=== PATIENT | female | born 2000 | race Caucasian/White ===

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

== ENCOUNTER 2020-02-01 15:22 | Outpatient (REF) | payer MEDICAID, SELFPAY ==
[2020-02-03 14:42] LABS: Patient Race White; SARS-CoV-2 RNA Undetected (Undetected); SARS-CoV-2 Specimen Source Nasopharynx
== END 2020-02-01 15:42 ==
LOC: LBN 15:22
PROVIDERS: PCP Internal Medicine; Visit Provider Nurse Practitioner Family
DX: Z20.828 Contact with and (suspected) exposure to other viral communicable diseases (principal)
CPT/HCPCS: U0003

== ENCOUNTER 2020-02-26 22:36 | Outpatient (REF) | payer MEDICAID, SELFPAY ==
[2020-03-02 00:26] LABS: Chlamydia amplified RNA Negative (Negative); N gonorrhoeae amplified RNA Negative (Negative); Source ENDOCERVICAL
== END 2020-02-26 22:56 ==
LOC: LBN 22:36
PROVIDERS: PCP Internal Medicine; Visit Provider Nurse Practitioner Family
DX: Z11.3 Encounter for screening for infections with a predominantly sexual mode of transmission (principal)
CPT/HCPCS: 87491; 87591

== ENCOUNTER 2020-04-06 14:05 | Outpatient (REF) | payer MEDICAID, SELFPAY ==
[2020-04-08 00:03] LABS: COVID-19 RT-PCR UVMMC Result Negative (Negative)
== END 2020-04-06 14:25 ==
LOC: NCHCN 14:05
PROVIDERS: PCP Internal Medicine; Visit Provider Physician Assistant
DX: Z11.59 Encounter for screening for other viral diseases (principal)
CPT/HCPCS: U0003

== ENCOUNTER 2020-05-04 19:23 | Outpatient (REF) | payer MEDICAID, SELFPAY ==
[2020-05-06 22:11] LABS: COVID-19 RT-PCR Result NEGATIVE (Negative)
== END 2020-05-04 19:43 ==
LOC: NCHCN 19:23
PROVIDERS: PCP Internal Medicine; Visit Provider Physician Assistant Medical
DX: J06.9 Acute upper respiratory infection, unspecified (principal)
CPT/HCPCS: U0003

== ENCOUNTER 2020-05-09 14:58 | Outpatient (REF) | payer MEDICAID, SELFPAY ==
[2020-05-09 21:04] LABS: TSH (W/Ref FT4) 1.64 uIU/mL (0.52-4.13)
== END 2020-05-09 15:18 ==
LOC: NCHCN 14:58
PROVIDERS: PCP Internal Medicine; Visit Provider Nurse Practitioner Family
DX: E03.9 Hypothyroidism, unspecified (principal)
CPT/HCPCS: 84443

== ENCOUNTER 2020-09-27 17:26 | Outpatient (CLI) | payer MEDICAID, SELFPAY ==
--- NOTE | 2020-09-27 | DI.RAD_ITS ---
Exam(s) XR ANKLE RT COMPLETE EXAM: XR ANKLE RT COMPLETE CLINICAL HISTORY: RT ANKLE JT PAIN, M25.571. TECHNIQUE: 2D digital imaging was performed. COMPARISON: No exams were available for comparison FINDINGS: BONES: No acute fracture is present. No bony destructive lesion is seen. JOINTS: The ankle mortise is normally aligned. SOFT TISSUE: Normal. IMPRESSION: Unremarkable radiographs of the right ankle. DATA REPOSITORY: RADIATION DOSE DELIVERED:
== END 2020-09-27 17:46 ==
PROVIDERS: PCP Internal Medicine; Visit Provider Nurse Practitioner Family
DX: M25.571 Pain in right ankle and joints of right foot (principal)
CPT/HCPCS: 73610

== ENCOUNTER 2020-11-15 19:29 | Emergency (ER) | payer MEDICAID, SELFPAY ==
[2020-11-15] VITALS (8 sets, daily range): BP systolic 93–129; BP diastolic 46–81; PULSE 96–108; RESP 16–18; TEMP 36.4–36.6; O2SAT 96–99
--- NOTE | 2020-11-15 19:50 | ED.GENADUL_ITS ---
Discharge Plan Disposition Patient Disposition: HOME Condition: Stable Discharge Details Clinical Impression: Nausea and vomiting during , URI (upper respiratory infection) Primary Care Provider: Brody Galicia ED Provider: Margarita Julian Home Meds and New Rx's Prescriptions: New metoclopramide HCl [Reglan] 5 mg tablet 5 mg PO Q6H PRN (Reason: nausea and vomiting) Qty: 10 RF: 0 Continued afiatveg-fhl-If-FA 1 mg Tablet 1 tab PO DAILY RF: 0 Discharge Instructions Instructions: Nausea and Vomiting in (ED), Upper Respiratory Infection (ED) Additional Instructions: Please continue to encourage frequent sips of fluids. Your labs are reassuring here today. Your nausea and vomiting is likely associated with your first trimester . You may use the Reglan as prescribed if you have recurrence of your nausea vomiting. This medication can make people feel anxious and have unusual movements. Benadryl will help with the side effects. You may also use Benadryl to help with nausea, vitamin B6, florence. Upper respiratory infection is likely viral in nature. Please quarantine until your COVID-19 testing has returned. Please follow-up with your COMMERCIAL CONSTRUCTION PROJECT MANAGER in 1 week for reevaluation, call tomorrow to schedule appointment. If you develop fever/chills, shortness of breath, difficulty breathing, abdominal pain, vaginal discharge or other new/worsening symptoms please seek care urgently once again Referrals: Dori Scott MD [ [facility] STAFF PHYSICIAN] - Brody Galicia MD [Primary Care Provider] - Medical Decision Making Patient is a pleasant 20-year-old female presenting today, company by significant other, with chief complaint of nausea and vomiting. Patient 6 weeks gestation. States over the past few days she began having increased nausea and vomiting. Reports 3 episodes of vomiting today. Is not tried anything to help with her symptoms. States that she also began having URI symptoms of runny nose, sore throat and cough. Cough is a nonproductive. She denies any shortness of breath or difficulty breathing. Patient is vaccinated against COVID-19. She denies any chest pain. Denies any abrupt abdominal pain, cramping. No vaginal discharge. On exam, patient appears nontoxic. Lungs are clear, HEENT exam is significant for slightly erythematous posterior oropharynx. Chest with scarring to left TM which she states was present from the child. Her abdomen is benign. I see any evidence of bacterial infection on exam. Lungs are clear, no evidence to suggest a bacterial pneumonia. Will Covid test. Advised that she quarantine until these results are back. Based on the amount of vomiting and difficulty staying hydrated, will IV hydrate and obtain baseline labs to look for any electrolyte abnormalities. Will give Reglan and Benadryl to help with her nausea. She not nursing any discomfort or discharge, no findings to suggest ectopic at this time. Patient has verification by COMMERCIAL CONSTRUCTION PROJECT MANAGER and is followed by [facility]. Patient reports feeling much improved, is requesting discharge. Labs reviewed. White count of 11.1. No significant electrolyte abnormalities. Discussed these findings with the patient. Will prescribe further Reglan to be used if symptoms return. Encourage frequent small sips of fluids. We also discussed other options for nausea affecting the first trimester such as vitamin B6, florence. Return precautions were discussed. Encourage close follow-up with COMMERCIAL CONSTRUCTION PROJECT MANAGER. All the questions and concerns were addressed and she is agreement this plan. HPI General Mode of arrival: ambulatory . Date/Time Provider Initiated Documentation: 11/15/20 19:50 . Limitations to Documentation: no limitations . Information obtained by: patient, family (signficant other) and RN notes reviewed . History of Present Illness 20 year old F presents to the emergency department with the chief complaint of nausea, vomiting, runny nose, cough, described as moderate, with intensity rated at 1 (denies any pain currently). Patient started experiencing this day(s) (3) and it has been constant. No relieving factors improve symptom(s), No exacerbating factors reported . Patient notes fever/chills (has had chills); denies chest pain, cough, headaches, rash, shortness of breath and weakness. 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 ALANNA: 3 Review of Systems Constitutional Constitutional: Reports as per HPI and Denies headache(s) Eyes Eyes: Reports as per HPI, Denies eye discharge and Denies irritation ENT Ears, Nose, Mouth, and Throat: Reports as per HPI and Denies headache(s) Cardiovascular Cardiovascular: Reports as per HPI, Denies chest pain and Denies dyspnea Respiratory Respiratory: Reports as per HPI and Denies dyspnea Gastrointestinal Gastrointestinal: Reports as per HPI, Denies abdominal pain, Denies change in bowel habits, Reports nausea and Reports vomiting Integumentary/Breasts Skin/Breast: Reports as per HPI and Denies rash Neurologic Neurologic: Reports as per HPI and Denies headache(s) [facility] Medical History (Updated 11/15/20 @ 21:13 by CARI Hodge) Recurrent dislocation of patella, right knee Right ovarian cyst Onset 02/2016. Started on OCPs. 11/2016 change to Depo-Provera. 04/2017 Changed to OCPs. Family History Grandfather Myocardial infarction Grandmother Rheumatoid arthritis Social History Smoking/Tobacco Use Status: Never Second Hand Exposure: No Smoking risk assessment performed?: Yes Alcohol Intake: never Drug use: Never Substance use type: does not use Household members: other Details: Lives with her father in his house. 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 Sexually active: Yes Seatbelt use: always Do you feel safe at home: Yes Do you feel safe in your relationship?: Yes History History 0 Para Hx # Term Pregnancies Multiple births Hx # Pregnancies Ectopic pregnancies AB induced Hx Number of Living Children AB spontaneous Exam Const General: cooperative, healthy appearing, comfortable, no acute distress, well developed and well groomed Nutritional Appearance: well nourished and overweight Orientation: alert and awake HENMT Head: normal to inspection, normocephalic and atraumatic Ears: hearing grossly normal bilaterally, external ears normal and TM's normal bilaterally General nose exam: external nose normal and nares normal Face and sinus: normal facial exam, sinuses nontender and face symmetric Mouth: oral mucosae normal, lip normal, tongue normal, oropharynx normal and moist mucous membranes Teeth and gingiva: dentition normal Throat: posterior oropharynx abnormal (slightly erythematous), tonsils normal and uvula midline Eyes General: appearance normal, both eyes and all related structures Neck Neck: normal visual inspection, full ROM, no lymphadenopathy and no meningeal signs Resp Effort & Inspection: normal respiratory effort, able to speak in complete sentences and no respiratory distress Auscultation: clear to auscultation bilaterally, no rales, no rhonchi and no wheezes Cardio Rate: regular rate Rhythm: regular rhythm Heart Sounds: S1 normal and S2 normal GI Inspection: normal to inspection Palpation: nontender Percussion: normal to percussion Auscultation: normal bowel sounds Skin General skin exam: no rashes or lesions noted Neuro General: patient alert and patient awake Cognition: normal cognition Speech: speech normal Gait: normal gait Psych Appearance: grossly normal and well kempt Mental Status: mental status grossly normal Speech and Movement: speech and movement normal Course Vital Signs Vital signs: Vital Signs Temperature 36.6 C 11/15/20 19:39 Pulse 108 H 11/15/20 19:39 Respiratory Rate 18 11/15/20 19:39 Blood Pressure 129/81 11/15/20 19:39 Pulse Oximetry 96 11/15/20 19:39 Temperature 36.6 C 11/15/20 19:39 Temperature Source Temporal Artery Scan 11/15/20 19:39 Pulse 108 H 11/15/20 19:39 Respiratory Rate 18 11/15/20 19:39 Respiratory Effort Non-Labored 11/15/20 19:43 Blood Pressure 129/81 11/15/20 19:39 Blood Pressure Position Sitting 11/15/20 19:39 Pulse Oximetry 96 11/15/20 19:39 Oxygen Delivery Method Room Air 11/15/20 19:39 Oxygen Flow Rate 0 11/15/20 19:39 Pain Level 0 11/15/20 19:39
[2020-11-15] MEDS: Normal Saline 1,000 ML 1000 ML IV (20:19)
[2020-11-15] MEDS: diphenhydrAMINE 50 MG/ML VIAL 25 MG IVP (20:23)
[2020-11-15] MEDS: Metoclopramide 10 MG/2 ML VIAL IVP (20:25)
[2020-11-15 20:27] LABS: Abs Immature Grans 0.04 10^3/uL (0.0-0.06); Absolute Basophil Count 0.04 10^3/uL (0.0-0.2); Absolute Eosinophil Count 0.32 10^3/uL (0.0-0.7); Absolute Lymphocyte Count 1.17 10^3/uL (1.2-3.4); Absolute Monocyte Count 1.33 10^3/uL (0.1-0.8); Basophils % 0.4; Eosinophils % 2.9; HCT 43.3 % (36.0-46.0); HGB 14.2 g/dL (11.2-15.7); Immature Grans % 0.4; Lymphocytes % 10.5; MCH 29.2 pg (27.0-33.0); MCHC 32.8 % (32.0-36.0); MCV 88.9 fL (80-95); MPV 9.8 fL (8.0-11.0); Neutrophils % 73.8; Nucleated RBC 0 %; Platelet Count 282 10^3/uL (130-400); RBC 4.87 10^6/uL (3.93-5.22); RDW-SD 42.7 fL; WBC 11.12 10^3/uL (4.4-10.8)
[2020-11-15 20:28] LABS: Absolute Neutrophil Count 8.21 10^3/uL (1.2-6.7)
[2020-11-15 20:39] LABS: ALT 30 U/L (14-59); AST 17 U/L (15-37); Albumin 3.6 g/dL (3.4-5.0); Alkaline Phosphatase 53 U/L (46-116); Anion Gap 9.7 mmol/L (3-11); BUN 6 mg/dL (7-18); CO2 26.3 mmol/L (21.0-32.0); CREATININE 0.7 mg/dL (0.55-1.02); Calcium 8.8 mg/dL (8.5-10.1); Chloride 101 mmol/L (98-107); Glucose 107 mg/dL (74-106); Potassium 3.6 mmol/L (3.5-5.1); Sodium 137 mmol/L (136-145); Total Protein 7.7 g/dL (6.4-8.2)
--- NOTE | 2020-11-15 20:53 | NUR.NOTE ---
Patient reports nausea resolved; no emesis since arrival. IV fluids infusing. SO at bedside.Nursing Note:
--- NOTE | 2020-11-15 21:27 | NUR.NOTE ---
2119-Covid swab collectedNursing Note:
[2020-11-17 14:24] LABS: COVID-19 RT-PCR UVMMC Result Negative (Negative)
== END 2020-11-15 21:41 | disposition home or self-care (01) ==
PROVIDERS: Emergency Provider Physician Assistant; PCP Internal Medicine
DX: O21.8 Other vomiting complicating pregnancy (principal); Z3A.01 Less than 8 weeks gestation of pregnancy; J06.9 Acute upper respiratory infection, unspecified; Z20.822 Contact with and (suspected) exposure to COVID-19
CPT/HCPCS: 80053; 96361; 96374; 96375; 99284; U0003; 85025; 99283; J1200; J2765

== ENCOUNTER 2020-12-30 02:24 | Outpatient (CLI) | payer MEDICAID, SELFPAY ==
[2020-12-30 10:17] LABS: Kit/Specimen SENT
[2020-12-30 10:28] LABS: Abs Immature Grans 0.07 10^3/uL (0.0-0.06); Absolute Basophil Count 0.05 10^3/uL (0.0-0.2); Absolute Eosinophil Count 0.24 10^3/uL (0.0-0.7); Absolute Lymphocyte Count 1.51 10^3/uL (1.2-3.4); Absolute Monocyte Count 0.99 10^3/uL (0.1-0.8); Basophils % 0.4; Eosinophils % 1.8; HCT 41.3 % (36.0-46.0); HGB 13.5 g/dL (11.2-15.7); Immature Grans % 0.5; Lymphocytes % 11.2; MCH 29.5 pg (27.0-33.0); MCHC 32.7 % (32.0-36.0); MCV 90.2 fL (80-95); MPV 9.5 fL (8.0-11.0); Monocytes % 7.3; Neutrophils % 78.8; Nucleated RBC 0 %; Platelet Count 296 10^3/uL (130-400); RBC 4.58 10^6/uL (3.93-5.22); RDW 12.6 % (11.7-14.6); RDW-SD 41.5 fL; WBC 13.52 10^3/uL (4.4-10.8)
[2020-12-30 10:29] LABS: Absolute Neutrophil Count 10.65 10^3/uL (1.2-6.7)
[2020-12-30 10:45] LABS: Glucose,1 Hr (Glucola) 123 mg/dL (80-140)
[2020-12-30 12:53] LABS: TSH (W/Ref FT4) 3.05 uIU/mL (0.36-3.74)
[2021-01-02 10:33] LABS: Hepatitis C Ab w Rflx HCV PCR Negative (Negative)
[2021-01-02 10:59] LABS: Varicella IgG Antibody Negative (See Note)
[2021-01-02 11:04] LABS: Rubella IgG Ab (UVM) Positive (See Note)
[2021-01-02 12:13] LABS: Hepatitis B Surface Ag Negative (Negative)
[2021-01-02 12:57] LABS: HIV-1/2 Ag & Ab Screen Negative (Negative)
[2021-01-02 13:15] LABS: Syphilis Total Ab w/Reflex Nonreactive (Nonreactive)
[2021-01-09 01:01] LABS: Result Summary NEGATIVE; Specimen WB Whole Blood
== END 2020-12-30 02:25 | disposition home or self-care (01) ==
LOC: LBO 02:24
PROVIDERS: PCP Internal Medicine; Visit Provider Advanced Practice Midwife
DX: Z34.91 Encounter for supervision of normal pregnancy, unspecified, first trimester; Z36.89 Encounter for other specified antenatal screening
CPT/HCPCS: 36415; 82950; 86787; 86803; 86850; 86900; 86901; 87340; 87389; 81220; 84443; 85025; 86762; 86780

== ENCOUNTER 2020-12-30 15:08 | Outpatient (REF) | payer MEDICAID, SELFPAY ==
[2020-12-30 15:17] LABS: *AMPHETAMINES SCREEN URINE Negative (Negative); *BARBITURATES SCREEN URINE Negative (Negative); *BENZODIAZEPINES SCREEN URINE Negative (Negative); Cannabinoids THC Negative (Negative); Cocaine Screen,Urine Negative (Negative); METHADONE URINE SCREEN Negative (Negative); OPIATES URINE SCREEN Negative (Negative)
[2020-12-30 15:25] LABS: Tricyclic Antidepressants Negative (Negative)
[2021-01-02 15:35] LABS: GC Result Negative (Negative)
[2021-01-02 15:36] LABS: GC Result Negative (Negative)
[2021-01-02 16:09] LABS: Chlamydia Result Positive (Negative)
[2021-01-02 16:10] LABS: Chlamydia Result Positive (Negative)
[2021-01-06 10:02] LABS: Buprenorphine Negative ng/mL (Cutoff: 5.0); Norbuprenorphine Negative ng/mL (Cutoff: 2.5)
== END 2020-12-30 15:09 | disposition home or self-care (01) ==
LOC: LBN 15:08
PROVIDERS: PCP Internal Medicine; Visit Provider Advanced Practice Midwife
DX: Z34.91 Encounter for supervision of normal pregnancy, unspecified, first trimester (principal); F41.9 Anxiety disorder, unspecified; Z68.33 Body mass index [BMI] 33.0-33.9, adult
CPT/HCPCS: 80307; 87491; 87591; 87086

== ENCOUNTER 2021-02-08 02:43 | Outpatient (CLI) | payer MEDICAID, SELFPAY ==
--- NOTE | 2021-02-08 08:45 | DI.US_ITS ---
Exam(s) US OB 2-3 TRIMESTER EXAM: US OB 2-3 TRIMESTER CLINICAL HISTORY: ,Z34.90. TECHNIQUE: Transabdominal obstetrical ultrasound was performed. COMPARISON: No exams were available for comparison FINDINGS: There is a single viable intrauterine gestation with cardiac activity identified-157 bpm. Amniotic fluid: There is a normal amount of amniotic fluid. Placental location: The placenta is anterior grade 1,with no evidence of placenta previa. ANATOMY: A 3 vessel umbilical cord is seen. A four-chamber cardiac view was obtained. Right and left ventricular outflow tracts were imaged. There are no obvious abnormalities of the spinal column evident. There is no obvious abnormal ity of the anterior abdominal wall. stomach and urinary bladder are identified and there is no evidence of hydronephrosis. No abnormalities of the upper lip region are identified. No evidence of choroid plexus cysts i n the brain. Dating parameters place this at approximately 18 weeks and 3 days gestational age. BPD measures 18 weeks and 2 days HC measures 18 weeks and 5 days AC measures 18 weeks and 1 day FL measures 18 weeks and 3 days Estimated weight is 236 gm-0 pounds 8 ounces Fetus is at the 76 percentile on the Hadlock scale. IMPRESSION:: Single viable intrauterine gestation which is approximately 18 weeks and 3 days gestati onal age, implying an MARC of July 09, 2021. There are no obvious anomalies evident on today's study. The placenta is anterior grade 1 with no evidence of placenta previa. There is a normal amount of amniotic fluid. DATA REPOSITORY:
== END 2021-02-08 03:03 ==
PROVIDERS: PCP Internal Medicine; Visit Provider Advanced Practice Midwife
DX: Z34.92 Encounter for supervision of normal pregnancy, unspecified, second trimester (principal)
CPT/HCPCS: 76805

== ENCOUNTER 2021-02-24 11:45 | Outpatient (REF) | payer MEDICAID, SELFPAY ==
[2021-02-27 14:25] LABS: Chlamydia Result Negative (Negative); GC Result Negative (Negative)
== END 2021-02-24 11:46 | disposition home or self-care (01) ==
LOC: LBN 11:45
PROVIDERS: PCP Internal Medicine; Visit Provider Advanced Practice Midwife
DX: O98.812 Other maternal infectious and parasitic diseases complicating pregnancy, second trimester; A74.9 Chlamydial infection, unspecified
CPT/HCPCS: 87491; 87591

== ENCOUNTER 2021-04-24 03:40 | Outpatient (CLI) | payer MEDICAID, SELFPAY ==
[2021-04-24 09:37] LABS: HCT 39.7 % (36.0-46.0); HGB 12.8 g/dL (11.2-15.7); MCH 29.9 pg (27.0-33.0); MCHC 32.2 % (32.0-36.0); MCV 92.8 fL (80-95); MPV 9.4 fL (8.0-11.0); Platelet Count 299 10^3/uL (130-400); RBC 4.28 10^6/uL (3.93-5.22); RDW 12.8 % (11.7-14.6); RDW-SD 43.7 fL; WBC 14.48 10^3/uL (4.4-10.8)
[2021-04-24 09:44] LABS: Glucose,1 Hr (Glucola) 122 mg/dL (80-140)
[2021-04-24 10:49] LABS: TSH (W/Ref FT4) 2.08 uIU/mL (0.36-3.74)
[2021-04-25 12:33] LABS: Thyroperoxidase Antibody 64 U/mL (<=60)
== END 2021-04-24 03:41 | disposition home or self-care (01) ==
LOC: LBO 03:40
PROVIDERS: Advanced Practice Midwife; PCP Internal Medicine; Visit Provider Advanced Practice Midwife
DX: Z34.93 Encounter for supervision of normal pregnancy, unspecified, third trimester (principal); R79.89 Other specified abnormal findings of blood chemistry
CPT/HCPCS: 36415; 82950; 85027; 84439; 84443; 86376

== ENCOUNTER 2021-06-05 12:58 | Outpatient (CLI) | payer MEDICAID, SELFPAY ==
[2021-06-05 13:25] VITALS: BP 117/67; PULSE 98; TEMP 36.8
[2021-06-05 13:35] VITALS: BP 117/67; PULSE 98
--- NOTE | 2021-06-05 14:19 | W.OBNST ---
Date of service: 06/05/21 Time of Service: 14:10 NST Evaluation Reason for NST Reasons for Nonstress Test: DECREASED MOVEMENT and OTHER, SEE COMMENT Reason for NST Other: Dizziness w/o resolve Gestational Age Gestational Age in Weeks and Days: 34 Weeks and 4Days Test and Monitor Explained Test/Monitor Explained: Test Explained, Monitor Explained and Patient Verbalized Understanding Vital Signs Blood Pressure: 117/67 Pulse: 98 Temperature: 98.2 F Urine Results Urine Protein: Negative Urine Ketones: Negative Urine Glucose: Negative Urine Blood: Negative NST Information Date on Monitor: 06/05/21 Time on Monitor: 13:31 Date off Monitor: 06/05/21 Time off Monitor: 13:58 Total Time on Monitor: 27 NST Interventions: PO Hydration Contraction Frequency: none NST Evaluation Patient States Movement: Present and Decreased FHR Baseline: 145 Variability: Moderate 6-25 bpm Accelerations: 15x15 Decelerations: None NST Results: Reactive Note NST Note Note: NST is reactive and reassuring. She feels better knowing baby is well and she can decrease her anxiety. Urine dip normal. Continue present management and keep appointment as scheduled on Saturday. Denies further concerns. RUTH NST Reviewed and Verified by: Noreen Castaneda
[2021-06-05 14:20] VITALS: BP 117/67; PULSE 98; TEMP 36.8
== END 2021-06-05 14:15 | disposition home or self-care (01) ==
LOC: BCD 13:01 → OBS 13:05
PROVIDERS: PCP Internal Medicine; Visit Provider Advanced Practice Midwife
DX: O36.8130 Decreased fetal movements, third trimester, not applicable or unspecified (principal); O26.893 Other specified pregnancy related conditions, third trimester; R42 Dizziness and giddiness; O99.343 Other mental disorders complicating pregnancy, third trimester; F41.9 Anxiety disorder, unspecified; Z3A.34 34 weeks gestation of pregnancy
CPT/HCPCS: 59025

== ENCOUNTER 2021-06-20 08:58 | Outpatient (CLI) | payer MEDICAID, SELFPAY ==
[2021-06-20] VITALS (8 sets, daily range): BP systolic 128–133; BP diastolic 78–92; PULSE 85–95; RESP 16; TEMP 36.7
--- OUTSIDE RECORDS SUMMARY | 2021-06-20 09:04 | XMS_ITS ---
:2000 Author Care Team Providers Name Role Phone [facility] Primary Care Provider [phone] FARTUN RAYMOND HAND CANDLE MOLDER Primary Care Provider [phone] Allergies Code Code System Name Reaction Severity Status Onset NKDA ? Medications Name Status Start Date Stop Date ? ? clotrimazole-betamethasone 1 %-0.05 % topical cream Completed ? 06/20/2020 APPLY TO VULVA TWO TIMES A DAY fluoxetine 10 mg capsule Completed ? 021 TAKE ONE CAPSULE BY MOUTH EVERY DAY hydroxyzine HCl 25 mg tablet Completed ? 11/2020 TAKE ONE TABLET BY MOUTH THREE TIMES A DAY NEEDED FOR ANXIET Y metronidazole 500 mg tablet Completed ? 11/2020 TAKE ONE TABLET BY MOUTH TWICE A DAY FOR 7 DAYS ofloxacin 0.3 % eye drops Completed ? 2020 APPLY 10 DROPS IN BOTH EARS DAILY FOR 7 DAYS prazosin 1 mg capsule Active ? Not availa ble Take 1 capsule every day by oral route in the evening. sertraline 25 mg tablet Completed ? 06/21/19 21 TAKE ONE TABLET BY MOUTH EVERY DAY sertraline 50 mg tablet Completed ? 06/21/19 21 TAKE ONE TABLET BY MOUTH EVERY DAY Setlakin 0.15 mg-30 mcg (91) tablets,3 month dose pack Active ? Not available Take 1 tablet every day by oral route. zolpidem 5 mg tablet Active ? Not availab le FOR NIGHT OF SLEEP STUDY ONLY: take 1 t ablet as needed for insomnia after sleep study set up. may repeat 1 hour later if not effective. Problems Name Status Onset Date Source ? Subclinical Hypothyroidism Active 05/23/2020 ? Obesity Active 05/23/2020 ? Anxiety Active 05/23/2020 ? Tobacco Dependence Syndrome Active 05/23/2020 ? Backache Active 05/23/2020 ? Tremor Active 05/23/2020 ? Paresthesia Active 05/23/2020 ? Headache Active 05/23/2020 ? Snoring Active 05/23/2020 ? Tight Chest Active 05/23/2020 ? Nausea Active 05/23/2020 ? Environmental Allergy Active 05/23/2020 ? Procedures None recorded. Results Lab Results None recorded. Past Encounters 06/20/2020 Snoring; Nightmares Associated with Oriental Medicine Practitioner yoselyn Post-traumatic Stress Disorder Annie Austin MD, Board Certified Sleep Ph ysician: [address] [place] [address] [address], [place] [address], Ph. Social History Tobacco Smoking Status Former Smoker Vaccine List None recorded. Plan of Care Patient Instructions We discussed signs and symptoms you are exhibiting that may be due to Obstructive Sleep Apnea or other sleep disorders. We went over sleep conditions that I suspect you may have that will benefit from further evaluation. The next step is to diagnose your sleep disorder through sleep study testing. We will get permission from your insuran ce to do the sleep study. Call us back in 2 to 3 weeks if you do not get a call from us about scheduling your sleep study. Bring all your home medications to the sleep study including any sleep aids. If you have further concerns on falling asleep for the sleep study, we do have Ambien 5 to 10 mg to be used as needed. John olvin, please note you should make arrange ments for a ride home in case you get morning drowsiness from taking sleep aid. 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 Reminders Provider Appointments None recorded. ? ? Lab None recorded. ? ? Referral None recorded. ? ? Procedures None recorded. ? ? Surgeries None recorded. ? ? Imaging None recorded. ? ? Vitals Height Weight BMI Blood Pressure 162.56 cm 86.41 kg 32.7 kg/m2 124/64 mm[Hg]
[2021-06-20 10:14] LABS: Bilirubin Negative (Negative); Blood Negative (Negative); Clarity Clear (Clear); Glucose Negative (Negative); Ketones Negative (Negative); Leukocyte Esterase Negative (Negative); Nitrite Negative (Negative); Specific Gravity 1.015 (1.005-1.025); Urobilinogen 0.2 EU/dL (Up TO 0.2)
--- NOTE | 2021-06-20 12:14 | W.OBNST ---
Date of service: 06/20/21 Time of Service: 12:14 NST Evaluation Reason for NST Reasons for Nonstress Test: OTHER, SEE COMMENT Reason for NST Other: rule out labor Gestational Age Gestational Age in Weeks and Days: 36 Weeks and 5Days Test and Monitor Explained Test/Monitor Explained: Test Explained, Monitor Explained and Patient Verbalized Understanding Vital Signs Blood Pressure: 133/92 Pulse: 95 Temperature: 98.1 F Urine Results Urine Protein: Negative Urine Ketones: Negative Urine Glucose: Negative Urine Blood: Negative NST Information Date on Monitor: 06/20/21 Time on Monitor: 09:20 Date off Monitor: 06/20/21 Time off Monitor: 10:33 Total Time on Monitor: 73 NST Interventions: PO Hydration Contraction Frequency: 5-10 NST Evaluation Patient States Movement: Present FHR Baseline: 140 Variability: Moderate 6-25 bpm Accelerations: 15x15 Decelerations: None NST Results: Reactive Note NST Note Note: Mena present with the baby's father. She reports taht she is having mild contractions every 5 minutes and they began when she woke up this morning. cervix is closed/ post/ soft/ -2. GBS swab taken. Reviewed signs of active labor. Return for scheduled appointment. NST Reviewed and Verified by: Noreen Espinoza
[2021-06-22 09:07] VITALS: BP 131/77; PULSE 71
== END 2021-06-20 10:40 | disposition home or self-care (01) ==
LOC: BCD 09:02 → OBS 09:10
PROVIDERS: PCP Internal Medicine; Visit Provider Advanced Practice Midwife
DX: O47.03 False labor before 37 completed weeks of gestation, third trimester (principal); Z3A.36 36 weeks gestation of pregnancy
CPT/HCPCS: 59025; 81003; 87081

== ENCOUNTER 2021-06-23 17:44 | Outpatient (REF) | payer MEDICAID, SELFPAY ==
[2021-06-23 12:41] LABS: *AMPHETAMINES SCREEN URINE Negative (Negative); *BARBITURATES SCREEN URINE Negative (Negative); *BENZODIAZEPINES SCREEN URINE Negative (Negative); Cannabinoids THC Negative (Negative); Cocaine Screen,Urine Negative (Negative); METHADONE URINE SCREEN Negative (Negative); OPIATES URINE SCREEN Negative (Negative)
[2021-06-23 12:42] LABS: Tricyclic Antidepressants Negative (Negative)
[2021-06-29 11:29] LABS: Buprenorphine Negative ng/mL (Cutoff: 5.0); Norbuprenorphine Negative ng/mL (Cutoff: 2.5)
== END 2021-06-23 17:45 | disposition home or self-care (01) ==
LOC: LBN 17:44
PROVIDERS: PCP Internal Medicine; Visit Provider Advanced Practice Midwife
DX: Z34.93 Encounter for supervision of normal pregnancy, unspecified, third trimester (principal)
CPT/HCPCS: 80307

== ENCOUNTER 2021-07-08 01:45 | Inpatient (IN) | payer MEDICAID, SELFPAY ==
[2021-07-08] VITALS (42 sets, daily range): BP systolic 111–145; BP diastolic 58–97; PULSE 80–112; RESP 16–18; TEMP 36.8–37.1; O2SAT 95–100
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
--- NOTE | 2021-07-08 02:48 | W.OBNST ---
Date of service: 07/08/21 Time of Service: 02:48 NST Evaluation Reason for NST Reasons for Nonstress Test: FALSE LABOR Gestational Age Gestational Age in Weeks and Days: 39 Weeks and 2Days Test and Monitor Explained Test/Monitor Explained: Test Explained, Monitor Explained and Patient Verbalized Understanding Vital Signs Blood Pressure: 133/95 Pulse: 83 Temperature: 208.9 F Urine Results Urine Protein: Negative Urine Ketones: Negative Urine Glucose: Negative Urine Blood: Negative NST Information Date on Monitor: 07/08/21 Time on Monitor: 01:23 Date off Monitor: 07/08/21 Time off Monitor: 01:56 Total Time on Monitor: 33 NST Interventions: PO Hydration Contraction Frequency: 2-3 NST Evaluation Patient States Movement: Present FHR Baseline: 130 Variability: Moderate 6-25 bpm Accelerations: 15x15 Decelerations: None NST Results: Reactive Note NST Note Note: Pt staying overnight for observation r/o labor NST Reviewed and Verified by: Cris Allred
--- NOTE | 2021-07-08 04:13 | W.PM.OBNL1 ---
Date of service: 07/08/21 Time of Service: 04:13 Informed Consent Informed Consent: Regional Anesthesia and Risk,Benefits,Alternatives Discussed Pelvic Exam Dilation: 4 Effacement (%): 90 station: -2 Contractions Monitor Mode: External Contraction Frequency(min): q2-4 Intensity: Moderate Fetus A Monitor: External (US) Heart Rate Baseline: 135 Presentation: Cephalic Variability: Moderate (6-25 BPM) Categories: Category I Amniotic Membrane Status: Intact Assessment and Plan Assessment and plan (1) with 39 completed weeks gestation: Status: Acute (2) Uterine contractions during : Status: Acute Assessment and plan: A: Cervical change to 4/90% per RN exam Pt increasingly uncomfortable Considering epidural, will give nitrous a try P: Admit to inpt for active labor at term CBC, T&S, COVID swab Begin IV access in preparation for regional anesthesia Objective Temp Pulse Resp BP 98.3 F 87 18 123/82 07/08/21 01:28 07/08/21 02:59 07/08/21 01:28 07/08/21 02:59 Vital Signs Reviewed: Yes Objective Narrative Objective Narrative: Pt continues to express discomfort which is increasing RN notes cervical change to 4 cm Afebrile, normotensive Category 1 tracing Pt considering choosing regional anesthesia Subjective Interval history since last seen: increasingly intense contractions, thinking about an epidural
--- NOTE | 2021-07-08 04:47 | NUR.NOTE ---
Nursing Note: Pt requesting epidural. Pt educated that LAbs must result and IV placed before epidural start. Pt agreeable to trying nitrous gas in the mean time. Nitrous gas started at 0440
[2021-07-08 04:48] LABS: Source Nasal/Nares
[2021-07-08 04:48] LABS: HCT 39.3 % (36.0-46.0); MCHC 33.1 % (32.0-36.0); MCV 90.6 fL (80-95); MPV 10.3 fL (8.0-11.0); Platelet Count 289 10^3/uL (130-400); RBC 4.34 10^6/uL (3.93-5.22); RDW 13.4 % (11.7-14.6); RDW-SD 44.9 fL; WBC 18.31 10^3/uL (4.4-10.8)
[2021-07-08 05:45] LABS: COVID-19 PCR Negative (Negative)
--- NOTE | 2021-07-08 07:11 | W.PM.OBNL1 ---
Date of service: 07/08/21 Time of Service: 07:12 Pelvic Exam Dilation: 5.5 Effacement (%): 100 station: -2 Position: LOP Cervix Position: anterior Consistency: soft Vaginal Exam Presentation: Cephalic Contractions Monitor Mode: Palpation Contraction Frequency(min): q 2-4 Intensity: Moderate/Strong Fetus A Monitor: Doppler Heart Rate Baseline: 135 FHR Rhythm: Regular Accelerations: Present Decelerations: None Amniotic Membrane Status: Intact Assessment and Plan Assessment and plan (1) with 39 completed weeks gestation: Status: Acute Assessment and plan: A: Labor progressing well Intermittent auscultation FHT per guidelines is reassuring P: Pt choosing comfort measures at this time IV access established Will send urine for prot/creat ratio Continue expectant management Anticipate Objective Abnormal lab results 07/08/21 Range/Units 04:40 WBC 18.31 H (4.4-10.8) 10^3/uL Temp Pulse Resp BP 98.5 F 107 H 18 145/97 H 07/08/21 06:00 07/08/21 05:56 07/08/21 01:28 07/08/21 05:56 Laboratory Results WBC 18.31 10^3/uL (4.4-10.8) H 07/08/21 04:40 RBC 4.34 10^6/uL (3.93-5.22) 07/08/21 04:40 Hgb 13.0 g/dL (11.2-15.7) 07/08/21 04:40 Hct 39.3 % (36.0-46.0) 07/08/21 04:40 MCV 90.6 fL (80-95) 07/08/21 04:40 MCH 30.0 pg (27.0-33.0) 07/08/21 04:40 MCHC 33.1 % (32.0-36.0) 07/08/21 04:40 RDW 13.4 % (11.7-14.6) 07/08/21 04:40 Plt Count 289 10^3/uL (130-400) 07/08/21 04:40 MPV 10.3 fL (8.0-11.0) 07/08/21 04:40 COVID-19 Source Nasal/Nares 07/08/21 04:00 SARS-CoV-2 (PCR) Negative (Negative) 07/08/21 04:00 Patient ABO/Rh O Positive 07/08/21 04:40 Antibody Screen NEGATIVE 07/08/21 04:40 Vital Signs Reviewed: Yes Objective Narrative Objective Narrative: BP labile, intermittent mild range noted with pt unmedicated and laboring Pt denies [place], RUQ pain or visual changes Use of nitrous has been effective, coping improved Subjective Interval history since last seen: Pt decided to delay regional anesthesia, has been in shower, resting in bed, using nitrous effectively, now requesting to soak in a warm tub. Interventions Pain Management Interventions: Comfort Measures , Ambulation, Breathing/Relaxation Techniques, Position Change, Shower and Tub and Nitrous Oxide , pt using nitrous effectively .
[2021-07-08] MEDS: Sertraline 50 MG TAB 100 MG PO (08:37)
[2021-07-08 09:47] LABS: COMMENT (LAB VIEW ONLY) 235.62 mg/dL; PROTEIN 54.4 mg/dL; Prot/Crea Ur Ratio 0.23
--- NOTE | 2021-07-08 10:29 | W.PM.OBNL1 ---
Date of service: 07/08/21 Time of Service: 10:29 Informed Consent Informed Consent: Regional Anesthesia and Risk,Benefits,Alternatives Discussed Pelvic Exam Dilation: 8 Effacement (%): 100 station: -2 Position: LOP Cervix Position: anterior Consistency: soft Vaginal Exam Presentation: Cephalic Contractions Monitor Mode: Palpation Contraction Frequency(min): q3 Intensity: Moderate/Strong Fetus A Monitor: Doppler Heart Rate Baseline: 135 FHR Rhythm: Regular Characteristics: Normal Accelerations: Present Decelerations: None Amniotic Membrane Status: Intact (palpable forebag) Assessment and Plan Assessment and plan (1) with 39 completed weeks gestation: Status: Acute Assessment and plan: A: Approaching transitional labor Need for pain management BP levels most likely pain response P: ANESTHESIA ASSISTANT paged by Vice President Of Sales IVF infusing, continuous EFM Will discuss AROM once pt is comfortable Anticipate Objective Vital Signs Reviewed: Yes Objective Narrative Objective Narrative: Urine protein/creatinine ratio 0.23 Mild range pressures noted without severe features Pt very uncomfortable, back pain with contractions Requesting epidural anesthesia Cvx 8/100% vtx LOP @ -2, forebag noted, membranes intact Subjective Interval history since last seen: Pt desires epidural anesthesia Interventions Pain Management Interventions: Epidural Epidural Placed by:: Orville Young.
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
--- NOTE | 2021-07-08 11:37 | W.ANESNEU ---
Epidural/Spinal Catheter Date Performed: 07/08/21 Procedure Start: 11:16 Procedure Stop: : Requesting Provider: Cris Allred Procedure Location: Obstetrics Reason Performed: Labor Epidural Standard Monitors Applied: ECG, Blood Pressure, SpO2, ETCO2 and See EMR for corresponding vital signs Patient Position: Sitting Sedation Given (Indicate Dose Given): No Sedation given Patient Mental Status: Awake Sterility: Hand Hygiene, Surgical Cap, Surgical Mask, Sterile Gloves, Sterile Drape/Sheet and Chlorhexidine Procedure Location: L3-L4 Interspace Epidural Needle: Tuohy 17 Guage Needle Length: 3.5 Inch Needle Approach: Midline Epidural Procedure: Skin Prepped, Sterile Drape Placed, 1% Lidocaine to skin and subcutaneous tissue with 25G needle, Tuohy Needle placed, ALEXIS to Saline Used, Epidural Catheter Placed, Negative Heme, Negative CSF Flow and Tuohy Needle Removed Catheter Placed?: Catheter Placed Test Dose (Indicate Dose Given): 5ml 1.5% Lidocaine with 1:200K Epinephrine Given and Negative Test Dose Loss of Resistance Depth (cm): 8 Catheter depth at skin (cm): 12 Dressing: Sorbaview Dressing Placed, Mastisol Used and Dressing reinforced with Tape Epidural Provider Bolus (Indicate Dose Given): Total Ropivacaine 0.1% with Fentanyl 2mcg/ml Given from pump. (ml) Dose:: 10 ml Additives (Indicate Dose Given ): None Infusion Medication: Medication Infusion Began Medication Infusion: Ropivacaine 0.1% with Fentanyl 2mcg/ml Maintenance Infusion Rate (ml/hour): 10 PCEA Bolus Dose (ml): 5 Block Level: T10 Paresthesia: None Ultrasound: Not Used Number of Attempts (See previous attempts in note section): 1 Procedure Tolerated: No Complications and Patient tolerated well Procedure Outcome: Successful Performed By: Orville Young
--- NOTE | 2021-07-08 11:55 | W.PM.OBNL1 ---
Date of service: 07/08/21 Time of Service: 11:55 Informed Consent Informed Consent: Other (AROM) Pelvic Exam Dilation: 9 Effacement (%): 100 station: -1 Position: LOT Contractions Monitor Mode: External Contraction Frequency(min): q2-4 Intensity: Moderate/Strong Fetus A Monitor: External (US) Heart Rate Baseline: 120 Presentation: Cephalic Variability: Moderate (6-25 BPM) Categories: Category I Accelerations: 15 X 15 Decelerations: None Amniotic Membrane Status: Ruptured Rupture Method: Artifical Amniotic Fluid: Clear Amount: moderate Date of Membrane Rupture: 07/08/21 Time of Membrane Rupture: 11:46 Assessment and Plan Assessment and plan (1) with 39 completed weeks gestation: Status: Acute Assessment and plan: A: Epidural anesthesia with good effect Category 1 tracing AROM for clear fluid @ 9 cm/vtx -1 FOB & pt's father at bedside offering support P: Maternal position changes to encourage rotation/descent EFM, clear fluids, encourage pt to rest/nap Anticipate Objective Vital Signs Reviewed: Yes Subjective Interval history since last seen: legs and feet are equally tingly, much more relaxed and comfortable
[2021-07-08] MEDS: Lactated Ringers 1,000 ML 125 ML IV (14:13)
[2021-07-08] MEDS: Oxytocin/Normal Saline 30 UNIT/500 ML BAG 95 UNITS IV (14:31)
--- NOTE | 2021-07-08 14:53 | OBVDS_ITS ---
Date of service: 07/08/21 Time of Service: 14:53 OB Labor/ Delivery Information Baby A Delivery Delivery Method: Spontaneaous Presentation: Vertex Vertex Position: Left Occipital Anterior Breech Position: N/A Cord Description-Baby A: Nuchal Cord (loose, pushed over shoulder and baby delivered through loop) Amniotic Fluid: Clear Estimated Blood Loss: 200 ml Delivery Outcome: Liveborn Transferred: Remains with Mother Note: Pt relaxed well after epidural completed, AROM for clear fluid @ 9 cm dilation, pt rested and changed positions every 30 minutes or so, FSE applied when anterior lip as FHT was difficult to trace while in lateral positions, category 1 tracing throughout advanced labor. When fully dilated and vtx at +2 station, pt coached to push and was very effective with her efforts. over intact perineum, loose nuchal cord reduced over shoulder and vigorous male infant delivered through loop of cord, placed into mother's arms immediately. Pitocin bolus given, cord clamped and cut by FOB, cord blood collected, then [place] placenta delivered intact with 3VC. Superficial vaginal floor laceration without extension was bleeding, repaired with several stitches of 3.0 Vicryl in crisscross pattern until homeostasis achieved. Fundus firm below umbilicus, min rubra, strong maternal infant bonding observed, apgars 7/8, weight 3535 gms. Providers Nurse Chronometer Assembler: Cris Allred Help Desk Representative: Orville Young Nurse: Josie Gomez Nurse: Eddie Mark Labor/Delivery Information Number of Babies in Womb: 1 Steroids Given: None Reason Steroids Not Administered: N/A Group Beta Strep: Negative Antibiotics Administered: No Rubella Status: Immune Blood Type: O+ Varicella Immunity: Nonimmune Maternal Complications: None Shoulder Dystocia: No Stages of Labor Onset of Labor Date: 07/08/21 Onset of Labor Time: 00:00 Complete Dilatation Date: 07/08/21 Complete Dilatation Time: 14:12 Labor - Stage 1 Duration: 0 minutes ROM Baby A: 07/08/21 ROM Baby A: 12:46 ROM Total Time- Baby A: [id number] Delivery Date-Baby A: 07/08/21 Infant Delivery Time-Baby A: 14:26 Labor Stage 2 Duration: 14 minutes Placenta Delivery Date-Baby A: 07/08/21 Placenta Delivery Time-Baby A: 14:31 Labor-Stage 3 Duration: 5 minutes Total Length of Labor-Baby A: 14 hours and 26 minutes Placenta Cultured: No Placenta Status: Delivered Baby A Infant Gender: Male Gestational Status: Term (39-41.6 wks) Gestational Age in Weeks/Days: 39 Weeks and 2 Days weight: 7 lb 12.693 oz Weight Comment: 3535 gms Score-1 Minute Interval(Baby A) Heart Rate-1 minute: 100 BPM or Greater Respiratory Effort- 1 minute: Slow Respiration/Weak Cry Muscle Tone-1 minute: Active Movement Reflex Response-1 minute: Prompt Response Color-1 minute: Pallor or Cyanosis Total Score-1 minute: 7 Score-5 Minute Interval(Baby A) Heart Rate- 5 minute: 100 BPM or Greater Respiratory Effort-5 minute: Slow Respiration/Weak Cry Muscle Tone-5 minute: Active Movement Reflex Response-5 minute: Prompt Response Color-5 minute: Bluish Hands or Feet Total Score- 5 minute: 8 Procedure Procedures: Cord Blood Collection/ Scalp Electrode Placement , indication for electrode: maternal position changes causing difficulty with external FHT detection Interventions Repair of Laceration Type: Other (superficial vaginal lac at introitus bleeding, repaired with 3.0 vicryl), Sponge Count Correct: No Sponges Placed in Vagina, Sharp Count Correct: Yes.
[2021-07-09 04:27] VITALS: BP 130/82; TEMP 36.4
[2021-07-09 07:20] VITALS: BP 141/96; PULSE 80; RESP 18; TEMP 36.5; O2SAT 96
--- NOTE | 2021-07-09 07:28 | W.PM.OBPNV1 ---
Date of service: 07/09/21 Time of Service: 07:29 Assessment and Plan Assessment and plan (1) Term delivered: Status: Acute Assessment and plan: A: nml PPD#1 off to a good start, though inverted nipples do present a challenge P: Pt hopes to be discharged later today Desires circumcision Varicella vaccine ordered prior to discharge, pt declined LC consult, support, using nipple corona currently Undecided regarding BCM F/up at 2 & 6 wks, continue BCM counseling Written instructions reviewed and given Subjective Subjective Patient comments: No complaints, Pain well controlled, Tolerating diet and Flatus present Patient's Mood: tired, happy baby status: Doing well, Nursing well, Rooming in and Strong Bonding Observed [place] feeding status: Exclusively breast feeding (using nipple shield due to inverted nipples) Exam Physical Exam Vital signs: Temp Pulse Resp BP Pulse Ox 97.5 F L 109 H 16 130/82 98 07/09/21 04:27 07/08/21 21:30 07/08/21 21:30 07/09/21 04:27 07/08/21 21:30 Vital Signs Reviewed: Yes Constitutional Constitutional: no acute distress and cooperative HEENT Exam HEENT Exam: Normal Neck Exam Neck Exam: Normal Breast Exam Bilateral: Breast Exam: Normal and Soft Nipple Exam: Normal and Uninjured Respiratory Exam Respiratory Exam: Normal Cardiovascular Exam Cardiovascular Exam: Normal Abdominal Exam Abdomen: Other (soft, nontender) Fundal Exam Fundus: Below Umbilicus and Firm Rectal Exam Rectal Exam: Normal Exam Perineum: Intact and Normal Extremities Exam Extremity Exam: Normal Back/Spine/Pelvis Exam Back Exam: Normal (epidural site with redness or swelling) Skin Exam Skin Exam: Normal Neurological Exam Neurological Exam: Normal Psychiatric Exam Psychiatric Exam: Normal Results Hemoglobin/Hematocrit: Hgb 13.0 g/dL (11.2-15.7) 07/08/21 04:40 Hct 39.3 % (36.0-46.0) 07/08/21 04:40
[2021-07-09] MEDS: Sertraline 50 MG TAB 100 MG PO (09:55)
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
[2021-07-09 13:50] VITALS: BP 139/97; PULSE 87
--- NOTE | 2021-07-10 01:03 | W.ANESPOSTOP ---
Postoperative Evaluation Date, Time and Location Date Performed: 07/08/21 Time Performed: 18:52 Patient Location: Obstetrics Vital Signs Most Recent Imported Vital Signs: Most Recent Vital Signs Temp Pulse Resp BP Pulse Ox 36.5 C 87 18 139/97 H 96 07/09/21 07:20 07/09/21 13:50 07/09/21 07:20 07/09/21 13:50 07/09/21 07:20 Pain Score Most Recent Pain Score: Most Recent Pain Score Pain Level [Lower Back] 0 07/09/21 07:20 Assessment Mental Status: Awake (Alert & Oriented to Patient Baseline) Airway and Respiratory Function: Patent airway with normal (patient baseline) respiratory exam Cardiovascular Function: Hemodynamically Stable Hydration Status: Adequately Hydrated Nausea & Vomiting: No Nausea or Vomiting Pain: Pt. Denies Any Pain Peripheral Nerve Block: Other (Epidural appropriately resolved, denied complaint, denied headache, denied backpain. Per RN catheter removed with tip intact.)
== END 2021-07-09 15:30 | disposition home or self-care (01) | DRG 807 ==
PROVIDERS: Admitting Provider Advanced Practice Midwife; PCP Internal Medicine; Visit Provider Advanced Practice Midwife
DX: O71.4 Obstetric high vaginal laceration alone (principal); Z37.0 Single live birth; Z3A.39 39 weeks gestation of pregnancy; O99.344 Other mental disorders complicating childbirth; F41.9 Anxiety disorder, unspecified; O69.81X0 Labor and delivery complicated by cord around neck, without compression, not applicable or unspecified
CPT/HCPCS: 36415; 85027; 86850; 86900; 86901; 87635; 59025; 82565; 84156; G0378

== ENCOUNTER 2021-12-28 21:19 | Outpatient (REF) | payer MEDICAID, SELFPAY ==
[2021-12-31 15:21] LABS: Chlamydia Result Positive (Negative); GC Result Negative (Negative)
== END 2021-12-28 21:20 | disposition home or self-care (01) ==
LOC: LBN 21:19
PROVIDERS: PCP Internal Medicine; Visit Provider Obstetrics & Gynecology
DX: Z11.3 Encounter for screening for infections with a predominantly sexual mode of transmission (principal)
CPT/HCPCS: 87491; 87591

== ENCOUNTER 2021-12-29 18:42 | Emergency (ER) | payer MEDICAID, SELFPAY | END 2021-12-29 19:09 | PROVIDERS: PCP Internal Medicine | DX: Z53.21 Procedure and treatment not carried out due to patient leaving prior to being seen by health care provider (principal) ==

== ENCOUNTER 2022-01-03 16:55 | Outpatient (REF) | payer MEDICAID, SELFPAY ==
--- NOTE | 2022-01-03 16:00 | PAPFT_PTH ---
PATIENT: Mena Gibson LOC: [facility] U#:[id number] AGE/SX: / ROOM: RE01/03/[address]: Cris Allred CNM : 2000 BED: DIS: 01/03/2022 SPEC #: [id number] RECD: 01/03/22 17:49 STATUS: USMAN REJose Luis #: [id number] JAVIER: 01/03/22 16:[address]: Cris Allred DEPT: [facility] Cytology RECD BY: Anastasia Ross ENTERED: 01/03/22 17:49 SP TYPE: PAPFT OTHR DR: Brody Galicia Tissues: 1 - CX/ENDOCX FOR PAP SMEARS Procedures: PAP THIN PREP/[facility] Screening Comments: [id number]
== END 2022-01-03 16:56 | disposition home or self-care (01) ==
LOC: LBN 16:55
PROVIDERS: PCP Internal Medicine; Visit Provider Advanced Practice Midwife
DX: Z12.4 Encounter for screening for malignant neoplasm of cervix (principal); R87.610 Atypical squamous cells of undetermined significance on cytologic smear of cervix (ASC-US)
CPT/HCPCS: 88142

== ENCOUNTER 2022-02-01 15:54 | Outpatient (REF) | payer MEDICAID, SELFPAY ==
[2022-02-03 15:06] LABS: Chlamydia Result Negative (Negative); GC Result Negative (Negative)
== END 2022-02-01 15:55 | disposition home or self-care (01) ==
LOC: LBN 15:54
PROVIDERS: PCP Internal Medicine; Visit Provider Advanced Practice Midwife
DX: A74.9 Chlamydial infection, unspecified (principal); Z71.1 Person with feared health complaint in whom no diagnosis is made
CPT/HCPCS: 87491; 87591; 87480; 87510; 87660

== ENCOUNTER 2022-02-23 17:39 | Outpatient (REF) | payer MEDICAID, SELFPAY ==
[2022-02-26 17:53] LABS: Chlamydia Result Negative (Negative); GC Result Negative (Negative)
== END 2022-02-23 17:40 | disposition home or self-care (01) ==
LOC: LBN 17:39
PROVIDERS: PCP Internal Medicine; Visit Provider Advanced Practice Midwife
DX: N89.8 Other specified noninflammatory disorders of vagina (principal); Z11.3 Encounter for screening for infections with a predominantly sexual mode of transmission
CPT/HCPCS: 87491; 87591; 87480; 87510; 87660

== ENCOUNTER 2022-06-04 15:09 | Outpatient (CLI) | payer MEDICAID, SELFPAY ==
[2022-06-06 13:21] LABS: GC Result Negative (Negative)
[2022-06-06 14:49] LABS: Chlamydia Result Positive (Negative)
== END 2022-06-04 15:10 | disposition home or self-care (01) ==
LOC: LBO 15:10
PROVIDERS: PCP Internal Medicine; Visit Provider Advanced Practice Midwife
DX: Z11.3 Encounter for screening for infections with a predominantly sexual mode of transmission (principal)
CPT/HCPCS: 87491; 87591

== ENCOUNTER 2022-06-21 11:34 | Outpatient (REF) | payer MEDICAID, SELFPAY ==
[2022-06-21 14:52] LABS: TSH (W/Ref FT4) 3.05 uIU/mL (0.36-3.74)
== END 2022-06-21 11:35 | disposition home or self-care (01) ==
LOC: NCHCN 11:34
PROVIDERS: PCP Internal Medicine; Visit Provider Nurse Practitioner Family
DX: E03.9 Hypothyroidism, unspecified (principal); F41.8 Other specified anxiety disorders; F17.210 Nicotine dependence, cigarettes, uncomplicated; E66.8 Other obesity
CPT/HCPCS: 84443

== ENCOUNTER 2022-07-24 08:17 | Outpatient (CLI) | payer MEDICAID, SELFPAY ==
--- NOTE | 2022-07-24 08:00 | DI.RAD_ITS ---
Exam(s) XR KNEE LT 3V AP,LAT,BACILIO EXAM: XR KNEE LT 3V AP,LAT,BACILIO CLINICAL HISTORY: left knee pain. TECHNIQUE: 2D digital imaging was performed. COMPARISON: CR XR knee RT 2V AP,lat from 03/21/2018 FINDINGS: 3 views No evidence acute fracture nor prominent joint effusion. No joint space narrowing. No degenerative changes. No osteochondral defects. IMPRESSION: No significant osseous findings. DATA REPOSITORY: RADIATION DOSE DELIVERED:
== END 2022-07-24 08:18 | disposition home or self-care (01) ==
LOC: DIORS 08:17
PROVIDERS: PCP Internal Medicine; Referring Provider Internal Medicine; Visit Provider Student in an Organized Health Care Education/Training Program
DX: M25.562 Pain in left knee (principal)
CPT/HCPCS: 73562

== ENCOUNTER 2022-07-30 11:38 | Outpatient (REF) | payer MEDICAID, SELFPAY ==
[2022-08-01 13:30] LABS: Chlamydia Result Negative (Negative); GC Result Negative (Negative)
== END 2022-07-30 11:39 | disposition home or self-care (01) ==
LOC: LBN 11:38
PROVIDERS: PCP Internal Medicine; Visit Provider Advanced Practice Midwife
DX: Z86.19 Personal history of other infectious and parasitic diseases (principal); Z11.3 Encounter for screening for infections with a predominantly sexual mode of transmission; N93.8 Other specified abnormal uterine and vaginal bleeding
CPT/HCPCS: 87491; 87591

== ENCOUNTER 2022-09-12 16:35 | Emergency (ER) | payer MEDICAID, SELFPAY ==
[2022-09-12 16:39] VITALS: BP 115/79; PULSE 144; RESP 18; TEMP 39.2; O2SAT 97
[2022-09-12 17:09] LABS: Bilirubin Negative (Negative); Blood Trace-intact (Negative); Clarity Clear (Clear); Glucose Negative (Negative); Ketones 40 mg/dL (Negative); Leukocyte Esterase Negative (Negative); Nitrite Negative (Negative); Urobilinogen 0.2 mg/dL (Up to 0.2); pH 6.5 (5-8)
[2022-09-12] MEDS: Normal Saline 1,000 ML 1000 ML IV ×2 (17:19→18:15)
[2022-09-12 17:20] VITALS: BP 120/71; PULSE 117; RESP 22; O2SAT 100
[2022-09-12] MEDS: Ketorolac 15 MG/ML VIAL IVP (17:20)
[2022-09-12 17:22] LABS: Bacteria Few HPF (Negative); C & S Indicated? No; Casts Negative LPF (Negative); Crystals Negative HPF (Negative); Epithelial Cells Rare HPF (Negative); Mucus Negative (Negative); RBC 0-2 HPF (0-2); WBC 0-2 HPF (0-5)
[2022-09-12 17:40] LABS: HCT 45.3 % (36.0-46.0); HGB 14.9 g/dL (11.2-15.7); MCH 29.2 pg (27.0-33.0); MCHC 32.9 % (32.0-36.0); MCV 89 fL (80-95); MPV 9.4 fL (8.0-11.0); RBC 5.11 10^6/uL (3.93-5.22); RDW 13.1 % (11.7-14.6); WBC 22.13 10^3/uL (4.4-10.8)
[2022-09-12 17:53] LABS: ALT 16 U/L (14-59); AST 13 U/L (15-37); Albumin 4.1 g/dL (3.4-5.0); Alkaline Phosphatase 62 U/L (46-116); Anion Gap 13.5 mmol/L (3-11); BUN 5 mg/dL (7-18); Bilirubin, Total 2.4 mg/dL (0.2-1.0); CO2 24.5 mmol/L (21.0-32.0); CREATININE 0.8 mg/dL (0.55-1.02); Calcium 9.6 mg/dL (8.5-10.1); Chloride 99 mmol/L (98-107); Estimated GFR 107.44 (mL/min/1.73m2); Glucose 82 mg/dL (74-106); Potassium 3.4 mmol/L (3.5-5.1); Sodium 137 mmol/L (136-145); Total Protein 8.5 g/dL (6.4-8.2)
[2022-09-12 18:02] LABS: Absolute Lymphocyte Count 1.33 10^3/uL (1.2-3.4); Platelet Count 486 10^3/uL (130-400)
[2022-09-12 18:03] LABS: Diff Comment Manual Differential; RBC Morphology Normal
[2022-09-12 18:15] LABS: COVID-19 PCR Negative (Negative); Influenza A PCR Negative (Negative); Influenza B PCR Negative (Negative); RSV PCR Negative (Negative)
[2022-09-12] MEDS: Potassium Chloride 10 MEQ TABCR PO (18:15)
[2022-09-12 18:24] LABS: Source Nasopharynx
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
[2022-09-12 19:35] VITALS: BP 99/58; PULSE 102; RESP 18; TEMP 37.3; O2SAT 99
== END 2022-09-12 19:50 | disposition home or self-care (01) ==
PROVIDERS: Emergency Provider Nurse Practitioner Family; PCP Internal Medicine
DX: J02.0 Streptococcal pharyngitis (principal)
CPT/HCPCS: 80053; 81025; 87040; 87637; 87880; 96361; 96372; 96374; 99284; 81003; 81015; 83735; 85025; 87081; 87086; J0561; J1885

== ENCOUNTER 2022-09-14 09:06 | Emergency (ER) | payer MEDICAID, SELFPAY ==
[2022-09-14 09:10] VITALS: BP 117/74; PULSE 112; RESP 18; TEMP 37.2; O2SAT 99
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
[2022-09-14] MEDS: Ondansetron O.D.T. 4 MG TABEF PO (09:44)
[2022-09-14] MEDS: Ibuprofen 600 MG TAB PO (09:44)
[2022-09-14] MEDS: Dexamethasone 10 MG/ML VIAL PO (09:46)
[2022-09-14 09:50] VITALS: RESP 18
== END 2022-09-14 09:52 | disposition home or self-care (01) ==
PROVIDERS: Emergency Provider Nurse Practitioner Family; PCP Internal Medicine
DX: J02.0 Streptococcal pharyngitis (principal); T50.905A Adverse effect of unspecified drugs, medicaments and biological substances, initial encounter
CPT/HCPCS: 99283; 99284; J1100

== ENCOUNTER 2022-10-26 16:40 | Outpatient (REF) | payer MEDICAID, SELFPAY ==
[2022-10-29 09:33] LABS: Chlamydia Result Negative (Negative); GC Result Negative (Negative)
== END 2022-10-26 16:41 | disposition home or self-care (01) ==
LOC: LBN 16:40
PROVIDERS: PCP Nurse Practitioner Family; Visit Provider Advanced Practice Midwife
DX: N76.2 Acute vulvitis (principal); N89.8 Other specified noninflammatory disorders of vagina
CPT/HCPCS: 87491; 87591; 87480; 87510; 87660

== ENCOUNTER 2022-12-18 20:29 | Outpatient (REF) | payer MEDICAID, SELFPAY | END 2022-12-18 20:30 | disposition home or self-care (01) | LOC: LBN 20:29 | PROVIDERS: PCP Nurse Practitioner Family; Visit Provider Physician Assistant | DX: J02.9 Acute pharyngitis, unspecified (principal) | CPT/HCPCS: 87070 ==

== ENCOUNTER 2023-01-30 17:02 | Outpatient (REF) | payer MEDICAID, SELFPAY ==
[2023-02-01 13:10] LABS: Chlamydia Result Negative (Negative); GC Result Negative (Negative)
== END 2023-01-30 17:03 | disposition home or self-care (01) ==
LOC: LBN 17:02
PROVIDERS: PCP Nurse Practitioner Family; Visit Provider Advanced Practice Midwife
DX: Z11.3 Encounter for screening for infections with a predominantly sexual mode of transmission (principal); N89.8 Other specified noninflammatory disorders of vagina
CPT/HCPCS: 87491; 87591; 87480; 87510; 87660

== ENCOUNTER 2023-02-28 15:39 | Outpatient (REF) | payer MEDICAID, SELFPAY ==
[2023-03-02 14:02] LABS: Chlamydia Result Negative (Negative); GC Result Negative (Negative)
== END 2023-02-28 15:40 | disposition home or self-care (01) ==
LOC: LBN 15:39
PROVIDERS: PCP Nurse Practitioner Family; Visit Provider Advanced Practice Midwife
DX: Z11.3 Encounter for screening for infections with a predominantly sexual mode of transmission (principal); N89.8 Other specified noninflammatory disorders of vagina
CPT/HCPCS: 87491; 87591; 87480; 87510; 87660

== ENCOUNTER 2023-04-29 09:37 | Outpatient (REF) | payer MEDICAID, SELFPAY ==
--- NOTE | 2023-04-29 09:00 | PAPFT_PTH ---
PATIENT: Mena Gibson LOC: [facility] U#:[id number] AGE/SX: 22/F ROOM: RE04/29/[address]: Cris Allred CNM : 2000 BED: DIS: 04/29/2023 SPEC #: [id number] RECD: 04/29/23 13:19 STATUS: USMAN ROBERT #: [id number] JAVIER: 04/29/23 09:[address]: Cris Allred DEPT: [facility] Cytology RECD BY: Anastasia Ross ENTERED: 04/29/23 13:19 SP TYPE: PAPFT OTHR DR: Amy Dallas Tissues: 1 - CX/ENDOCX FOR PAP SMEARS Procedures: PAP THIN PREP/[facility] Screening Comments: [id number] (CHLAMYDIA/GC)
[2023-04-30 16:39] LABS: Chlamydia Result Negative (Negative); GC Result Negative (Negative)
== END 2023-04-29 09:38 | disposition home or self-care (01) ==
LOC: LBN 09:37
PROVIDERS: PCP Nurse Practitioner Family; Visit Provider Advanced Practice Midwife
DX: Z11.3 Encounter for screening for infections with a predominantly sexual mode of transmission (principal)
CPT/HCPCS: 87491; 87591; 88142; 87480; 87510; 87660

== ENCOUNTER 2023-07-08 10:15 | Outpatient (REF) | payer MEDICAID, SELFPAY ==
[2023-07-09 14:50] LABS: Chlamydia Result Negative (Negative); GC Result Negative (Negative)
== END 2023-07-08 10:16 | disposition home or self-care (01) ==
LOC: LBN 10:15
PROVIDERS: PCP Nurse Practitioner Family; Visit Provider Nurse Practitioner Women's Health
DX: N76.0 Acute vaginitis (principal); Z11.3 Encounter for screening for infections with a predominantly sexual mode of transmission
CPT/HCPCS: 87491; 87591; 87480; 87510; 87660

== ENCOUNTER 2023-08-13 05:00 | Emergency (ER) | payer MEDICAID, SELFPAY ==
[2023-08-13 05:04] VITALS: BP 120/81; PULSE 83; RESP 16; TEMP 36.6; O2SAT 98
[2023-08-13 05:08] VITALS: BP 120/81; PULSE 83; RESP 16; TEMP 36.6; O2SAT 98
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
[2023-08-13] MEDS: Ibuprofen 400 MG TAB PO (05:57)
[2023-08-13] MEDS: Amoxicillin 875/Clav. 125 TAB PO (05:57)
== END 2023-08-13 06:05 | disposition home or self-care (01) ==
PROVIDERS: Emergency Provider Student in an Organized Health Care Education/Training Program; PCP Nurse Practitioner Family
DX: H66.92 Otitis media, unspecified, left ear (principal); F17.290 Nicotine dependence, other tobacco product, uncomplicated
CPT/HCPCS: 99283

== ENCOUNTER 2023-08-20 14:49 | Outpatient (REF) | payer MEDICAID, SELFPAY | END 2023-08-20 14:50 | disposition home or self-care (01) | LOC: LBN 14:49 | PROVIDERS: PCP Nurse Practitioner Family; Visit Provider Advanced Practice Midwife | DX: N89.8 Other specified noninflammatory disorders of vagina (principal) | CPT/HCPCS: 87480; 87510; 87660 ==

== ENCOUNTER 2023-09-08 15:23 | Emergency (ER) | payer MEDICAID, SELFPAY ==
[2023-09-08 15:31] VITALS: BP 120/79; PULSE 118; RESP 16; TEMP 37.5; O2SAT 99
[2023-09-08 15:35] VITALS: BP 120/79; PULSE 118; RESP 16; TEMP 37.5; O2SAT 99
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
[2023-09-08] MEDS: ACETAMINOPHEN 1,000 MG/100 ML BTL 400 MG IVPB (16:27)
[2023-09-08 16:28] VITALS: RESP 18
[2023-09-08] MEDS: Ondansetron 4 MG/2 ML VIAL IVP (16:28)
[2023-09-08] MEDS: Lactated Ringers 1,000 ML 1000 ML IV ×2 (16:28→17:15)
[2023-09-08] MEDS: Ketorolac 15 MG/ML VIAL IVP (16:28)
[2023-09-08 16:35] LABS: Abs Immature Grans 0.09 10^3/uL (0.0-0.06); HCT 42.1 % (36.0-46.0); HGB 14.2 g/dL (11.2-15.7); MCH 30.3 pg (27.0-33.0); MCHC 33.7 % (32.0-36.0); MCV 90 fL (80-95); MPV 9.3 fL (8.0-11.0); Platelet Count 518 10^3/uL (130-400); RBC 4.69 10^6/uL (3.93-5.22); RDW 12.3 % (11.7-14.6); RDW-SD 40.4 fL; WBC 20.22 10^3/uL (4.4-10.8)
[2023-09-08 16:52] LABS: ALT 20 U/L (14-59); AST 15 U/L (15-37); Albumin 4.1 g/dL (3.4-5.0); Alkaline Phosphatase 67 U/L (46-116); Anion Gap 10.1 mmol/L (3-11); BUN 11 mg/dL (7-18); Bilirubin, Total 2.9 mg/dL (0.2-1.0); CO2 25.9 mmol/L (21.0-32.0); CREATININE 0.9 mg/dL (0.55-1.02); Calcium 8.8 mg/dL (8.5-10.1); Chloride 101 mmol/L (98-107); Glucose 85 mg/dL (74-106); Lipase 33 U/L (16-77); Magnesium 1.7 mg/dL (1.8-2.4); Potassium 3.8 mmol/L (3.5-5.1); Sodium 137 mmol/L (136-145); Total Protein 7.9 g/dL (6.4-8.2)
[2023-09-08 16:54] LABS: Absolute Lymphocyte Count 0.81 10^3/uL (1.2-3.4); Absolute Monocyte Count 1.01 10^3/uL (0.1-0.8); Bands % 3 %
[2023-09-08 16:55] LABS: Diff Comment Manual Differential; RBC Morphology Normal
[2023-09-08 17:09] LABS: Procalcitonin < 0.1 ng/mL
[2023-09-08 17:10] LABS: Bilirubin, Direct 0.3 mg/dL (0.0-0.2)
[2023-09-08 17:49] LABS: Bilirubin Negative (Negative); Blood Negative (Negative); Clarity Clear (Clear); Glucose Negative (Negative); Ketones 15 mg/dL (Negative); Leukocyte Esterase Negative (Negative); Nitrite Negative (Negative)
== END 2023-09-08 19:03 | disposition home or self-care (01) ==
PROVIDERS: Emergency Provider Physician Assistant; PCP Nurse Practitioner Family
DX: B34.9 Viral infection, unspecified (principal); F17.290 Nicotine dependence, other tobacco product, uncomplicated
CPT/HCPCS: 80053; 83690; 84145; 87040; 96361; 96365; 96375; 99284; 81003; 82248; 83605; 83735; 85025; 87081; 99283; J0131; J1885; J2405

== ENCOUNTER 2023-09-09 16:35 | Emergency (ER) | payer MEDICAID, SELFPAY ==
[2023-09-09 16:37] VITALS: BP 108/76; PULSE 122; RESP 20; TEMP 38.1; O2SAT 96
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
[2023-09-09] MEDS: Amoxicillin 500 MG CAP PO (18:02)
[2023-09-09 18:03] VITALS: BP 108/76; PULSE 122; RESP 20; TEMP 38.1; O2SAT 96
[2023-09-09] MEDS: Ibuprofen 400 MG TAB PO (18:03)
== END 2023-09-09 18:05 | disposition home or self-care (01) ==
PROVIDERS: Emergency Provider Physician Assistant; PCP Nurse Practitioner Family
DX: R51.9 Headache, unspecified (principal); R52 Pain, unspecified; R42 Dizziness and giddiness; J02.0 Streptococcal pharyngitis
CPT/HCPCS: 87426; 87880; 99283; 99284

== ENCOUNTER 2023-09-26 16:03 | Outpatient (REF) | payer MEDICAID, SELFPAY ==
[2023-09-28 14:05] LABS: Chlamydia Result Negative (Negative); GC Result Negative (Negative)
== END 2023-09-26 16:04 | disposition home or self-care (01) ==
LOC: LBN 16:03
PROVIDERS: PCP Nurse Practitioner Family; Visit Provider Advanced Practice Midwife
DX: N89.8 Other specified noninflammatory disorders of vagina (principal); Z11.3 Encounter for screening for infections with a predominantly sexual mode of transmission
CPT/HCPCS: 87491; 87591; 87480; 87510; 87660

== ENCOUNTER 2023-10-02 14:04 | Outpatient (CLI) | payer MEDICAID, SELFPAY ==
[2023-10-02 14:01] LABS: Abs Immature Grans 0.04 10^3/uL (0.0-0.06); Absolute Basophil Count 0.09 10^3/uL (0.0-0.2); Absolute Eosinophil Count 0.26 10^3/uL (0.0-0.7); Absolute Lymphocyte Count 2.91 10^3/uL (1.2-3.4); Absolute Monocyte Count 0.96 10^3/uL (0.1-0.8); Absolute Neutrophil Count 5.94 10^3/uL (1.2-6.7); Basophils % 0.9 %; Eosinophils % 2.5 %; HCT 43.8 % (36.0-46.0); HGB 14.1 g/dL (11.2-15.7); Immature Grans % 0.4 %; Lymphocytes % 28.5 %; MCH 30.1 pg (27.0-33.0); MCHC 32.2 % (32.0-36.0); MCV 93 fL (80-95); MPV 8.9 fL (8.0-11.0); Monocytes % 9.4 %; Neutrophils % 58.3 %; Platelet Count 590 10^3/uL (130-400); RBC 4.69 10^6/uL (3.93-5.22); RDW 12.5 % (11.7-14.6); RDW-SD 42.7 fL
[2023-10-02 14:21] LABS: Amylase 68 U/L (25-115); Lipase 47 U/L (16-77)
[2023-10-02 14:25] LABS: ALT 17 U/L (14-59); AST 13 U/L (15-37); Alkaline Phosphatase 64 U/L (46-116); Anion Gap 7.8 mmol/L (3-11); BUN 10 mg/dL (7-18); Bilirubin, Total 0.82 mg/dL (0.2-1.0); CO2 29.2 mmol/L (21.0-32.0); CREATININE 0.7 mg/dL (0.55-1.02); Calcium 8.8 mg/dL (8.5-10.1); Chloride 103 mmol/L (98-107); Estimated GFR 125.33 (mL/min/1.73m2); Glucose 89 mg/dL (74-106); Potassium 3.7 mmol/L (3.5-5.1); Sodium 140 mmol/L (136-145); Total Protein 7.8 g/dL (6.4-8.2)
== END 2023-10-02 14:05 | disposition home or self-care (01) ==
LOC: LBO 14:04
PROVIDERS: Advanced Practice Midwife; PCP Nurse Practitioner Family; Visit Provider Advanced Practice Midwife
DX: D75.839 Thrombocytosis, unspecified (principal); E80.6 Other disorders of bilirubin metabolism; B34.9 Viral infection, unspecified; N89.8 Other specified noninflammatory disorders of vagina
CPT/HCPCS: 36415; 80053; 83690; 82150; 85025

== ENCOUNTER 2023-10-15 17:29 | Outpatient (CLI) | payer MEDICAID, SELFPAY ==
[2023-10-15 18:26] LABS: Iron 57 ug/dL (50-170); Total Iron Binding Capacity 306 ug/dL (250-450); Transferrin Sat 19 % (15-50)
[2023-10-15 19:04] LABS: Abs Immature Grans 0.04 10^3/uL (0.0-0.06); Absolute Basophil Count 0.07 10^3/uL (0.0-0.2); Absolute Lymphocyte Count 2.23 10^3/uL (1.2-3.4); Absolute Neutrophil Count 7.91 10^3/uL (1.2-6.7); Basophils % 0.6 %; Eosinophils % 2.6 %; HGB 13.3 g/dL (11.2-15.7); Immature Grans % 0.3 %; Lymphocytes % 19.5 %; MCH 29.6 pg (27.0-33.0); MCHC 31.7 % (32.0-36.0); MCV 94 fL (80-95); MPV 9.3 fL (8.0-11.0); Monocytes % 7.9 %; Neutrophils % 69.1 %; Platelet Count 512 10^3/uL (130-400); RBC 4.49 10^6/uL (3.93-5.22); RDW 12.9 % (11.7-14.6); RDW-SD 44.2 fL; WBC 11.45 10^3/uL (4.4-10.8)
[2023-10-15 19:25] LABS: Ferritin 88 ng/mL (8-252)
[2023-10-22 10:15] LABS: BCR-ABL1 p210 FusionTranscript See Comments; Specimen Type Blood
[2023-10-22 10:19] LABS: BCR-ABL1 Interpretation See Comments
[2023-10-22 10:20] LABS: Limitations and Disclaimers See Comments
[2023-12-03 13:52] LABS: Misc Referral (DHMC) See Comments
== END 2023-10-15 17:30 | disposition home or self-care (01) ==
LOC: LBO 17:29
PROVIDERS: PCP Nurse Practitioner Family; Visit Provider Internal Medicine Hematology & Oncology
DX: D75.839 Thrombocytosis, unspecified (principal)
CPT/HCPCS: 36415; 81206; 81270; 82728; 83540; 83550; 85025

== ENCOUNTER 2023-10-28 15:15 | Outpatient (REF) | payer MEDICAID, SELFPAY ==
[2023-10-28 21:10] LABS: TSH (W/Ref FT4) 2.37 uIU/mL (0.36-3.74)
== END 2023-10-28 15:16 | disposition home or self-care (01) ==
LOC: NCHCN 15:15
PROVIDERS: PCP Nurse Practitioner Family; Visit Provider Nurse Practitioner Family
DX: E03.9 Hypothyroidism, unspecified (principal)
CPT/HCPCS: 84443

== ENCOUNTER 2023-12-18 18:06 | Outpatient (REF) | payer MEDICAID, SELFPAY ==
[2023-12-20 12:56] LABS: Chlamydia Result Negative (Negative); GC Result Negative (Negative)
== END 2023-12-18 18:07 | disposition home or self-care (01) ==
LOC: LBN 18:06
PROVIDERS: PCP Nurse Practitioner Family; Visit Provider Obstetrics & Gynecology Gynecology
DX: Z11.3 Encounter for screening for infections with a predominantly sexual mode of transmission (principal); N89.8 Other specified noninflammatory disorders of vagina
CPT/HCPCS: 87491; 87591; 87480; 87510; 87660

== ENCOUNTER 2023-12-24 09:05 | Outpatient (REF) | payer MEDICAID, SELFPAY ==
[2023-12-24 17:20] LABS: Folate 10.3 ng/mL (8.6-20.0); Vitamin B12 530 pg/mL (193-986)
== END 2023-12-24 09:06 | disposition home or self-care (01) ==
LOC: NCHCN 09:05
PROVIDERS: PCP Nurse Practitioner Family; Visit Provider Nurse Practitioner Family
DX: F41.8 Other specified anxiety disorders; Z79.899 Other long term (current) drug therapy
CPT/HCPCS: 82607; 82746

== ENCOUNTER 2024-05-12 14:28 | Outpatient (REF) | payer MEDICAID, SELFPAY ==
[2024-05-12 15:32] LABS: Abs Immature Grans 0.04 10^3/uL (0.0-0.06); Absolute Basophil Count 0.06 10^3/uL (0.0-0.2); Absolute Eosinophil Count 0.09 10^3/uL (0.0-0.7); Absolute Lymphocyte Count 1.89 10^3/uL (1.2-3.4); Absolute Monocyte Count 0.89 10^3/uL (0.1-0.8); Absolute Neutrophil Count 6.15 10^3/uL (1.2-6.7); Basophils % 0.7 %; HCT 44.5 % (36.0-46.0); HGB 14.5 g/dL (11.2-15.7); Immature Grans % 0.4 %; Lymphocytes % 20.7 %; MCH 30.1 pg (27.0-33.0); MCHC 32.6 % (32.0-36.0); MCV 93 fL (80-95); MPV 9.3 fL (8.0-11.0); Monocytes % 9.8 %; Neutrophils % 67.4 %; Platelet Count 560 10^3/uL (130-400); RBC 4.81 10^6/uL (3.93-5.22); RDW 12.2 % (11.7-14.6); RDW-SD 41.4 fL; WBC 9.12 10^3/uL (4.4-10.8)
== END 2024-05-12 14:29 | disposition home or self-care (01) ==
LOC: NCHCN 14:28
PROVIDERS: PCP Nurse Practitioner Family; Visit Provider Nurse Practitioner Family
DX: D75.839 Thrombocytosis, unspecified (principal)
CPT/HCPCS: 85025

== ENCOUNTER 2024-05-18 15:55 | Outpatient (CLI) | payer MEDICAID, SELFPAY ==
[2024-05-19 19:41] LABS: Hepatitis C Ab w Rflx HCV PCR Negative (Negative)
[2024-05-19 19:43] LABS: HIV-1/2 Ag & Ab Screen Negative (Negative)
[2024-05-20 12:39] LABS: Chlamydia Result Negative (Negative); GC Result Negative (Negative)
[2024-05-20 22:24] LABS: Syphilis IgG w/Reflex Nonreactive (Nonreactive)
== END 2024-05-18 15:56 | disposition home or self-care (01) ==
LOC: LBO 15:57
PROVIDERS: PCP Nurse Practitioner Family; Visit Provider Nurse Practitioner Women's Health
DX: Z11.3 Encounter for screening for infections with a predominantly sexual mode of transmission (principal)
CPT/HCPCS: 36415; 86803; 87389; 87491; 87591; 86780

== ENCOUNTER 2024-08-19 20:28 | Emergency (ER) | payer MEDICAID, SELFPAY ==
[2024-08-19] VITALS (21 sets, daily range): BP systolic 86–117; BP diastolic 43–72; PULSE 66–96; RESP 11–23; TEMP 36.8; O2SAT 94–100
--- NOTE | 2024-08-19 20:45 | DI.CT_ITS ---
Exam(s) CT ABDOMEN PELVIS W EXAM: CT ABDOMEN PELVIS W CLINICAL HISTORY: Abdominal pain. TECHNIQUE: Imaging Protocol: Axial computed tomography images with coronal and sagittal reformatted images were created and reviewed CONTRAST MATERIAL: Intravenous: Omnipaque-350 75cc Oral: None COMPARISON: CT ABD PELVIS WITH CONTRAST from 02/11/2015 FINDINGS: VISUALIZED LUNG BASES: No nodules nor pleural effusions evident. ABDOMEN: There is no ascites. LIVER: There are no focal hepatic lesions evident. No dilated intrahepatic ducts. GALLBLADDER/BILIARY: No obvious gallbladder pathology. CBD is not dilated. PANCREAS: No evidence of pancreatic mass nor dilatation of the pancreatic duct. SPLEEN: Spleen is not enlarged. No obvious intrasplenic lesions. Splenic and portal veins are paten t. ADRENALS: There are no significant adrenal masses. KIDNEYS:No cysts evident. No solid renal masses. No calculi nor hydronephrosis.. ABDOMINAL AORTA: Abdominal aorta is not enlarged. LYMPH NODES:There is no retroperitoneal nor paraaortic adenopathy. ABDOMINAL WALL: No evidence of significant anterior abdominal wall nor inguinal hernia. GI: There is no evidence of bowel obstruction, free air, nor abscess. PELVIS: GI: No evidence of appendicitis.No evidence of sigmoid diverticulitis. LYMPH NODES: There is no intrapelvic nor inguinal adenopathy. REPRODUCTIVE: There is an IUD in the endometrial canal which appears to be in satisfactory position. No abnormal adnexal masses but there is some mild free fluid in the pelvis posterior to the uterus. URINARY BLADDER: No calculi nor obvious masses evident OSSEOUS: No fractures and no significant osseous lesions. IMPRESSION: 1. There is an IUD in satisfactory position in the endometrial canal of the uterus. 2. No abnormal adnexal findings but there is some free fluid in the pelvis behind the uterus. Possib ly female physiologic but given the presence of IUD there is always concern for pelvic inflammatory d isease. 3. No evidence of obvious appendicitis. RADIATION DOSE DELIVERED: 593.81mGy.cm Total DLP DATA REPOSITORY: All CT scans at this facility are submitted to the National Radiology Data Registry (NRDR) Dose Index Registry (DIR) with the [employer] (ACR). RADIATION OPTIMIZATION: All CT scans at this facility use at least one of these dose optimization te chniques: automated exposure control; mA and/or kV adjustment per patient size (includes targeted exa ms where dose is matched to clinical indication); or iterative reconstruction.
[2024-08-19 20:52] LABS: Abs Immature Grans 0.05 10^3/uL (0.0-0.06); Absolute Basophil Count 0.09 10^3/uL (0.0-0.2); Absolute Eosinophil Count 0.41 10^3/uL (0.0-0.7); Absolute Lymphocyte Count 3.42 10^3/uL (1.2-3.4); Absolute Monocyte Count 1.51 10^3/uL (0.1-0.8); Absolute Neutrophil Count 9.66 10^3/uL (1.2-6.7); Basophils % 0.6 %; Eosinophils % 2.7 %; HCT 40.5 % (36.0-46.0); HGB 13.8 g/dL (11.2-15.7); Immature Grans % 0.3 %; Lymphocytes % 22.6 %; MCH 30.3 pg (27.0-33.0); MCHC 34.1 % (32.0-36.0); MCV 89 fL (80-95); Neutrophils % 63.8 %; Platelet Count 542 10^3/uL (130-400); RBC 4.55 10^6/uL (3.93-5.22); RDW 12.5 % (11.7-14.6); RDW-SD 40.4 fL; WBC 15.14 10^3/uL (4.4-10.8)
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
[2024-08-19] MEDS: Ondansetron 4 MG/2 ML VIAL IVP (21:01)
[2024-08-19] MEDS: MORPHine 10 MG/ML VIAL 2 MG IVP (21:02)
[2024-08-19 21:09] LABS: Diff Comment Diff Reviewed; RBC Morphology Normal
[2024-08-19 21:22] LABS: ALT 15 U/L (14-59); AST 14 U/L (15-37); Albumin 3.8 g/dL (3.4-5.0); Alkaline Phosphatase 53 U/L (46-116); Anion Gap 9.8 mmol/L (3-11); BUN 13 mg/dL (7-18); Bilirubin, Total 0.8 mg/dL (0.2-1.0); CO2 26.2 mmol/L (21.0-32.0); CREATININE 0.8 mg/dL (0.55-1.02); Chloride 104 mmol/L (98-107); Estimated GFR 106.11 (mL/min/1.73m2); Glucose 85 mg/dL (74-106); Lipase 46 U/L (<78); Magnesium 1.8 mg/dL (1.8-2.4); Potassium 3.8 mmol/L (3.5-5.1); Sodium 140 mmol/L (136-145); Total Protein 7.1 g/dL (6.4-8.2)
[2024-08-19 21:23] LABS: Bilirubin Negative (Negative); Blood Negative (Negative); Clarity Clear (Clear); Glucose Negative (Negative); Ketones Negative (Negative); Leukocyte Esterase Negative (Negative); Nitrite Negative (Negative); Urobilinogen 0.2 mg/dL (Up to 0.2); pH 5.5 (5-8)
[2024-08-19] MEDS: Omnipaque 350 MG/ML 100 ML BTL IJ (21:47)
[2024-08-19] MEDS: Normal Saline 500 ML 1000 ML IV (21:48)
[2024-08-19] MEDS: Normal Saline - Diluent 50 ML VIAL IJ (21:48)
--- NOTE | 2024-08-19 22:21 | DI.VRAD_ITS ---
PROCEDURE INFORMATION: Exam: CT Abdomen And Pelvis With Contrast Exam date and time: 08/19/2024 9:33 PM Age: 23 years old Clinical indication: Abdominal pain; Generalized TECHNIQUE: Imaging protocol: Computed tomography of the abdomen and pelvis with contrast. Contrast material: OMNIPAQUE 350; Contrast volume: 75 ml; Contrast route: INTRAVENOUS (IV); COMPARISON: US OB 2-3 TRIMESTER 02/08/2021 2:16 PM FINDINGS: Lungs: Lung bases are clear. Liver: The liver has a normal appearance. Gallbladder and biliary ducts: The gallbladder is unremarkable. No biliary ductal dilatation. Pancreas: The pancreas demonstrates normal size. No pancreatic ductal dilatation. Spleen: The spleen demonstrates normal size. Adrenal glands: The adrenal glands have a normal appearance. Kidneys and ureters: The kidneys are normal in size. No nephrolithiasis or hydronephrosis. No hydroureter or ureterolithiasis. Stomach and bowel: The bowel demonstrates overall normal caliber and wall thickness. Appendix: The appendix is thin walled and gas filled. Intraperitoneal space: There is trace low-density free pelvic fluid which is likely physiologic in a premenopausal female. Vasculature: The IVC and aorta have a normal appearance. Lymph nodes: No enlarged lymph nodes. Urinary bladder: The bladder is thin walled and fluid filled. Reproductive: The uterus has a normal appearance. An IUD is present in the uterine fundus where expected. Bones/joints: Bones have a normal appearance. No acute fracture or suspicious bone lesion. Soft tissues: Unremarkable. IMPRESSION: 1. No acute intra-abdominal findings. 2. Normal appendix. Dictated and Authenticated by: June Jaramillo MD. Orderin Domingo Sanz MD
== END 2024-08-19 22:59 | disposition home or self-care (01) ==
PROVIDERS: Emergency Provider Registered Nurse Emergency; PCP Nurse Practitioner Family
DX: R10.9 Unspecified abdominal pain (principal); D72.829 Elevated white blood cell count, unspecified; R11.2 Nausea with vomiting, unspecified
CPT/HCPCS: 99284; 99285; 81025; 96374; 96375; 80053; 83690; 96361; 74177; 81003; 83735; 85025; J2270; J2405; J3490

== ENCOUNTER 2024-09-17 02:36 | Outpatient (CLI) | payer MEDICAID, SELFPAY ==
--- NOTE | 2024-09-17 07:00 | DI.US_ITS ---
Exam(s) US PELVIS TRANSVAGINAL EXAM: US PELVIS TRANSVAGINAL CLINICAL HISTORY: Pelvic and perineal pain, R10.2. TECHNIQUE: Transabdominal and transvaginal pelvic ultrasound was performed using standard protocol. COMPARISON: US US PELVIS from 01/12/2019 US US OB 2-3 TRIMESTER from 02/08/[address] ABDOMEN PELVIS W from 08/19/2024 FINDINGS: UTERUS: Position: Anteverted. Size: 12.1 long by 4.0 AP by 5.3 transverse cm Endometrium: 0.8 cm. Normal for patient's menstrual status. There is an IUD which is in good position . Myometrium: Unremarkable. Cervix: Unremarkable. OVARIES: Right: 2.9 x 2.2 x 1.9 cm Cyst or mass: No suspicious cystic or solid masses. Left: 3.8 x 2.0 x 3.6 cm Cyst or mass: No suspicious cystic or solid masses. DOPPLER: Color: Symmetric and uniform flow to both ovaries. CUL-DE-SAC: Free fluid: None. Other: None. IMPRESSION: 1. Normal-appearing uterus with endometrial stripe within normal limits. 2. Unremarkable bilateral ovaries. 3. The IUD is in good position. DATA REPOSITORY:
== END 2024-09-17 02:56 ==
LOC: DI 02:36
PROVIDERS: PCP Nurse Practitioner Family; Visit Provider Nurse Practitioner Family
DX: R10.2 Pelvic and perineal pain (principal)
CPT/HCPCS: 76830; 76856

== ENCOUNTER 2024-09-30 14:26 | Outpatient (REF) | payer MEDICAID, SELFPAY ==
[2024-10-01 11:38] LABS: Chlamydia Result Negative (Negative); GC Result Negative (Negative)
== END 2024-09-30 14:27 | disposition home or self-care (01) ==
LOC: LBN 14:26
PROVIDERS: PCP Nurse Practitioner Family; Visit Provider Nurse Practitioner Women's Health
DX: Z11.3 Encounter for screening for infections with a predominantly sexual mode of transmission (principal)
CPT/HCPCS: 87491; 87591

== ENCOUNTER 2024-11-16 08:02 | Emergency (ER) | payer OTHER, SELFPAY ==
[2024-11-16 08:09] VITALS: BP 111/73; PULSE 111; RESP 18; TEMP 36.8; O2SAT 98
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
[2024-11-16] MEDS: Acetaminophen 500 MG TAB 1000 MG PO (08:37)
[2024-11-16] MEDS: Dexamethasone 4 MG TAB 8 MG PO (08:37)
[2024-11-16] MEDS: Ibuprofen 600 MG TAB PO (08:37)
[2024-11-16 09:26] VITALS: PULSE 82; RESP 16; O2SAT 97
== END 2024-11-16 09:54 | disposition home or self-care (01) ==
PROVIDERS: Emergency Provider Emergency Medicine Emergency Medical Services; PCP Nurse Practitioner Family
DX: J02.9 Acute pharyngitis, unspecified (principal); B34.9 Viral infection, unspecified
CPT/HCPCS: 81025; 87426; 87880; 99283; 87081; J8540

== ENCOUNTER 2024-11-17 14:06 | Outpatient (REF) | payer OTHER, SELFPAY | END 2024-11-17 14:07 | disposition home or self-care (01) | LOC: LBN 14:06 | PROVIDERS: PCP Nurse Practitioner Family; Visit Provider Nurse Practitioner Women's Health | DX: N76.0 Acute vaginitis (principal) | CPT/HCPCS: 87480; 87510; 87660 ==

== ENCOUNTER 2025-01-04 17:24 | Outpatient (REF) | payer OTHER, SELFPAY ==
[2025-01-04 21:27] LABS: ESR 31 mm/hr (0-20)
[2025-01-04 21:51] LABS: C-Reactive Protein 1.02 mg/dL (<or=0.5); TSH 2.75 uIU/mL (0.36-3.74)
[2025-01-06 11:01] LABS: Lyme Ab w Rflx to Lyme Confirm Negative (Negative)
[2025-01-07 14:28] LABS: B. miyamotoi PCR Negative (Negative); Babesia divergens/MO-1 Negative (Negative); Ehrlichia muris eauclairensis Negative (Negative)
== END 2025-01-04 17:25 | disposition home or self-care (01) ==
LOC: NCHCL 17:24
PROVIDERS: PCP Nurse Practitioner Family; Visit Provider Nurse Practitioner Family
DX: M25.50 Pain in unspecified joint (principal); M25.552 Pain in left hip; M25.561 Pain in right knee; M54.6 Pain in thoracic spine; G89.29 Other chronic pain; M25.562 Pain in left knee; E03.9 Hypothyroidism, unspecified
CPT/HCPCS: 85652; 86200; 87798; 84439; 84443; 86038; 86140; 86431; 86618

== ENCOUNTER 2025-01-07 17:37 | Outpatient (REF) | payer OTHER, SELFPAY ==
[2025-01-13 14:44] LABS: RNP Ab, IgG <0.2 U; SS-A/Ro, IgG <0.2 U; SS-B (La) Ab, IgG <0.2 U; Sm (Smith) Ab, IgG <0.2 U
== END 2025-01-07 17:38 | disposition home or self-care (01) ==
LOC: NCHCN 17:37
PROVIDERS: PCP Nurse Practitioner Family; Visit Provider Nurse Practitioner Family
DX: M25.50 Pain in unspecified joint (principal)
CPT/HCPCS: 86225; 86235